=== PATIENT | male | born 1965 | race Caucasian/White ===

== ENCOUNTER 2019-11-09 18:57 | Inpatient (IN) | payer OTHER ==
[~2019-11-09] VITALS: Ht 172.7 cm; Wt 102.1 kg
[~2019-11-09 18:57] MED LIST: ADV 500/50 INH; ADVAIR 100/501 E1; ANAPROX DS550 MG PO; DILANTIN; DILANTIN100 MG PO; DOXYCYCLINE MO100 MG PO; EPI EZ PEN1 MG/ML IM; MEDROL DOSEPAK4 MG PO; PHENERGAN W/DM120 ML PO; PREDNICOT20 MG PO; PROAIR HFA0.09 MG/AC IH; TRAMADOL HCL50 MG PO; Ventolin 02.5 MG/3 M INH; ZITHROMAX Z PA250 MG PO
[2019-11-09 19:22] LABS: BASO # 0.1 10*3/uL (0.0-0.1); BASO % 0.7 % (0.0-1.0); EOS # 0.1 10*3/uL (0.0-0.4); EOS % 1.6 % (1.0-4.0); HEMATOCRIT 43.2 % (42.0-52.0); LYMPH # 4.2 10*3/uL (1.3-4.4); LYMPH % 54.8 % (27.0-41.0); MEAN CELL VOLUME 95.6 fl (80.0-94.0); MEAN CORPUSCULAR HGB CONC 32.4 g/dl (33.0-37.0); MEAN PLATELET VOLUME 8.7 fl (9.6-12.3); MONO # 0.6 10*3/uL (0.1-1.0); MONO % 8.2 % (3.0-9.0); NEUT # 2.7 10*3/uL (2.3-7.9); NEUT % 34.6 % (47.0-73.0); PLATELET COUNT AUTOMATED 226 10*3/uL (130-400); RED BLOOD COUNT 4.52 10*6/uL (4.50-5.90); RED CELL DISTRI WIDTH 14.2 % (0-14.5); WHITE BLOOD COUNT 7.7 10*3/uL (4.8-10.8)
[2019-11-09 19:32] LABS: ACT PARTIAL THROMBO TIME 24.5 SECONDS (20.0-32.1); INTERNATIONAL NORM RATIO 0.9 (2.0-3.5)
[2019-11-09 19:41] VITALS: BP 145/80
[2019-11-09 19:54] LABS: ALBUMIN 3.4 gm/dl (3.1-4.5); ALKALINE PHOSPHATASE 84 U/L (45-117); BUN 17 mg/dl (7-24); CHLORIDE 108 mmol/L (98-107); CREATININE 0.95 mg/dL (0.70-1.30); LIPASE 99 U/L (73-393); POTASSIUM 3.7 mmol/L (3.5-5.1); SGOT/AST 20 IU/L (3-35); SGPT/ALT 38 U/L (12-78); SODIUM 142 mmol/L (136-145)
[2019-11-09 19:59] LABS: TROPONIN I < 0.015 ng/ml (<0.045)
[2019-11-09 21:56] VITALS: BP 105/56
--- NOTE | 2019-11-09 21:56 | NUR ---
A 53, admitted to , under the services of RICHARD Culp DO with a diagnosis of ASTHMA. Chief complaint is . Patient arrived via stretcher from ER. Monitor applied. Initial assessment completed. Vital signs taken and recorded. RICHARD CULP DO notified of admission to the unit. Orders received. See assessment for past medical history, medications and allergies. Patient and/or family oriented to unit. [facility] visitation policy reviewed. Clothing/patient valuable form completed. NUNU FLORES
--- NOTE | 2019-11-09 23:13 | NUR ---
DR. GUIDO NOTIFIED OF CRITICAL TROPONIN OF 0.085.
--- NOTE | 2019-11-09 23:27 | NUR ---
DR. GUIDO NOTIFIES THAT PATIENT IS EXPERIENCING MILD CHEST DISCOMFORT. DR GUIDO TO COME SEE PATIENT.
[2019-11-10] VITALS: BP 110/72
--- NOTE | 2019-11-10 00:10 | NUR ---
DESTINY AND JENNIFER FROM RESPIRATORY SPOKE WITH DR. GUIDO REGARDING ORDER FOR ABG'S THAT WAS LISTED NOT COLLECTED. PATIENT VERY APPREHENSIVE AND WAS VERY ANXIOUS. DR GUIDO TOLD DESTINY THAT SINCE THE PATIENT WAS SO SCARED AND ANXIOUS THAT HE DID NOT NEED TO HAVE ABG'S DONE.
--- NOTE | 2019-11-10 00:13 | NUR ---
PATIENT RESTING QUIETLY. NO S/S OF DISTRESS NOTED.
--- NOTE | 2019-11-10 00:13 | NUR ---
PATIENT GIVEN ASPIRIN AND ATIVAN 1 MG IV PER ONE TIME ORDER FOR ANXIETY AND CHEST DISCOMFORT. SEE EMAR. REINFORCED USE F CALL LIGHT
--- NOTE | 2019-11-10 02:10 | NUR ---
NOTIFIED DR. FUENTES OF CRITICAL TROPONIN OF 0.084. NO NEW ORDERS RECEIVED. WILL CONTINUE TO MONITOR.
[2019-11-10 06:32] LABS: BASO % 0.2 % (0.0-1.0); HEMATOCRIT 41.9 % (42.0-52.0); HEMOGLOBIN 13.8 g/dl (14.0-18.0); LYMPH # 0.7 10*3/uL (1.3-4.4); LYMPH % 12.3 % (27.0-41.0); MEAN CELL VOLUME 93.5 fl (80.0-94.0); MEAN CORPUSCULAR HGB 30.8 pg (27.0-31.0); MEAN CORPUSCULAR HGB CONC 32.9 g/dl (33.0-37.0); MONO # 0.1 10*3/uL (0.1-1.0); MONO % 0.9 % (3.0-9.0); NEUT % 86.3 % (47.0-73.0); PLATELET COUNT AUTOMATED 223 10*3/uL (130-400); RED BLOOD COUNT 4.48 10*6/uL (4.50-5.90); RED CELL DISTRI WIDTH 14.1 % (0-14.5); WHITE BLOOD COUNT 5.8 10*3/uL (4.8-10.8)
[2019-11-10 06:50] LABS: BUN 12 mg/dl (7-24); CHLORIDE 114 mmol/L (98-107); CHOLESTEROL 191 mg/dL (<200); CREATININE 0.98 mg/dL (0.70-1.30); PHOSPHOROUS 1.8 mg/dL (2.5-4.9); POTASSIUM 4.4 mmol/L (3.5-5.1); SODIUM 142 mmol/L (136-145); TRIGLYCERIDES 61 mg/dl (<150); VLDL CHOLESTEROL 12 mg/dL (6-40)
[2019-11-10 06:51] LABS: HDL CHOLESTEROL 47 mg/dl (40-60); LDL CHOLESTEROL 132 mg/dL (9-159)
[2019-11-10 07:42] LABS: VITAMIN D, 25-HYDROXY 16.9 ng/mL (30-100)
[2019-11-10 09:36] LABS: BILIRUBIN NEGATIVE (NEGATIVE); BLOOD NEGATIVE (NEGATIVE); CLARITY SL CLOUDY (CLEAR); COLOR YELLOW (YELLOW); GLUCOSE NEGATIVE (NEGATIVE); KETONE NEGATIVE (NEGATIVE); LEUKO ESTERASE NEGATIVE (NEGATIVE); NITRITE NEGATIVE (NEGATIVE); PH 5.5 (5.0-9.0); SPECIFIC GRAVITY >= 1.030 (1.005-1.030); UROBILINOGEN 0.2 E.U./dl (0.2-1.0)
[2019-11-10 09:48] LABS: MUCOUS 1+; WBC 0-2 wbc/hpf (0-5)
[2019-11-10 09:55] LABS: BACTERIA 1+
[2019-11-10 12:00] VITALS: BP 112/62
[2019-11-10 16:00] VITALS: BP 112/63
--- NOTE | 2019-11-10 16:42 | NUR ---
PATIENT RESTING QUIETLY IN BED. NO DISTRESS NOTED. RESPIRATIONS EASY, REGULAR ON RA. DENIES ANY SOB AT REST. URBINA. WILL CONTINUE TO MONITOR. VSS. CALL LIGHT WITHIN REACH.
[2019-11-10 20:00] VITALS: BP 99/46
[2019-11-11] VITALS: BP 109/66
[2019-11-11 06:33] LABS: BASO % 0.1 % (0.0-1.0); EOS % 0.1 % (1.0-4.0); HEMATOCRIT 41.7 % (42.0-52.0); HEMOGLOBIN 13.5 g/dl (14.0-18.0); LYMPH % 6.6 % (27.0-41.0); MEAN CELL VOLUME 93.9 fl (80.0-94.0); MEAN CORPUSCULAR HGB 30.4 pg (27.0-31.0); MEAN CORPUSCULAR HGB CONC 32.4 g/dl (33.0-37.0); MEAN PLATELET VOLUME 9.2 fl (9.6-12.3); MONO # 0.6 10*3/uL (0.1-1.0); MONO % 3.7 % (3.0-9.0); NEUT # 13.3 10*3/uL (2.3-7.9); PLATELET COUNT AUTOMATED 247 10*3/uL (130-400); RED BLOOD COUNT 4.44 10*6/uL (4.50-5.90); RED CELL DISTRI WIDTH 14.6 % (0-14.5)
[2019-11-11 07:01] LABS: BUN 14 mg/dl (7-24); CHLORIDE 114 mmol/L (98-107); POTASSIUM 4.2 mmol/L (3.5-5.1); SODIUM 143 mmol/L (136-145)
[2019-11-11 08:15] VITALS: BP 118/60
[2019-11-11] MEDS ORDERED: PREDNISONE10 MG PO (09:44)
--- NOTE | 2019-11-11 10:35 | NUR ---
Discharge instructions reviewed with patient/family. Patient receptive and verbalizes understanding. Follow-up care understood. Written instructions given to patient/family. iv removed left ac, dressing applied. tele d/c. pt declined wheelchair SAILAJA FERRIS
== END 2019-11-11 10:35 | disposition home or self-care (01) | DRG 189 ==
LOC: ED 18:57 → EDHOLD 21:01 → 4E 21:06
PROVIDERS: Emergency Medicine Emergency Medical Services; Family Medicine; Internal Medicine; ADMIT Internal Medicine
DX: J96.01 Acute respiratory failure with hypoxia (principal); J45.901 Unspecified asthma with (acute) exacerbation; R65.10 Systemic inflammatory response syndrome (SIRS) of non-infectious origin without acute organ dysfunction; I10 Essential (primary) hypertension; E87.8 Other disorders of electrolyte and fluid balance, not elsewhere classified; F17.210 Nicotine dependence, cigarettes, uncomplicated; J44.9 Chronic obstructive pulmonary disease, unspecified; R73.9 Hyperglycemia, unspecified; Z71.6 Tobacco abuse counseling; Z88.1 Allergy status to other antibiotic agents; Z88.8 Allergy status to other drugs, medicaments and biological substances; Z98.52 Vasectomy status; Z83.3 Family history of diabetes mellitus; Z82.49 Family history of ischemic heart disease and other diseases of the circulatory system; Z82.0 Family history of epilepsy and other diseases of the nervous system

== ENCOUNTER 2020-08-31 05:55 | Emergency (ER) | payer OTHER ==
[~2020-08-31] VITALS: Ht 172.7 cm; Wt 84.0 kg
[~2020-08-31 05:55] MED LIST changes: +PREDNISONE10 MG PO
[2020-08-31 06:12] LABS: BASO % 0.5 % (0.0-1.0); EOS # 0.1 10*3/uL (0.0-0.4); EOS % 1.4 % (1.0-4.0); HEMATOCRIT 44.4 % (42.0-52.0); LYMPH # 2.7 10*3/uL (1.3-4.4); LYMPH % 35.2 % (27.0-41.0); MEAN CORPUSCULAR HGB 30.3 pg (27.0-31.0); MEAN CORPUSCULAR HGB CONC 33.3 g/dl (33.0-37.0); MEAN PLATELET VOLUME 8.3 fl (9.6-12.3); MONO # 0.6 10*3/uL (0.1-1.0); MONO % 8.2 % (3.0-9.0); NEUT # 4.2 10*3/uL (2.3-7.9); NEUT % 54.4 % (47.0-73.0); PLATELET COUNT AUTOMATED 263 10*3/uL (130-400); RED BLOOD COUNT 4.88 10*6/uL (4.50-5.90); RED CELL DISTRI WIDTH 14.4 % (0-14.5); WHITE BLOOD COUNT 7.6 10*3/uL (4.8-10.8)
[2020-08-31 06:37] LABS: ALBUMIN 3.9 gm/dl (3.1-4.5); ALKALINE PHOSPHATASE 83 U/L (45-117); BUN 9 mg/dl (7-24); CHLORIDE 112 mmol/L (98-107); CREATININE 0.95 mg/dL (0.70-1.30); POTASSIUM 3.4 mmol/L (3.5-5.1); SGOT/AST 36 IU/L (3-35); SGPT/ALT 41 U/L (12-78); SODIUM 143 mmol/L (136-145); TOTAL PROTEIN 7.7 gm/dL (6.4-8.2)
[2020-08-31 06:40] LABS: TROPONIN I < 0.015 ng/ml (<0.045)
== END 2020-08-31 08:55 | disposition home or self-care (01) ==
LOC: ED 05:55
PROVIDERS: Internal Medicine
DX: F10.10 Alcohol abuse, uncomplicated (principal); Z79.899 Other long term (current) drug therapy; Y90.9 Presence of alcohol in blood, level not specified